=== PATIENT | female | born 1995 | race Caucasian/White ===

== ENCOUNTER 2018-12-04 01:00 | Emergency (ER) | payer OTHER ==
[2018-12-04] MEDS ORDERED: CIPROFLOXACIN HCL 500 MG TABLET PO ONE (01:21)
--- NOTE | 2018-12-04 01:24 | ER Document Report ---
ED General - General Stated Complaint: POST EXPOSURE Time Seen by Provider: 12/04/18 01:21 Notes: Patient is a pleasant 23-year-old female who presents with complaint of possible exposure to meningitis. Her was just brought to the ER unfortunately the cardiac arrest after having fevers and altered mental status and severe headache. Concern is that he has meningitis. Patient herself has not had any fevers or symptoms. She otherwise is doing well. She does not think there is any chance she could be . She has no other concerns or complaints at this time. No headache. No neck stiffness. She denies her and having any kids at home that may have been exposed to him. Past Medical History - Social History Smoking Status: Never Smoker Frequency of alcohol use: None Drug Abuse: None Family History: Reviewed & Not Pertinent Review of Systems - Review of Systems Notes: My Normal Review Basic REVIEW OF SYSTEMS: CONSTITUTIONAL : Denies fever, chills, or sweats. Denies recent illness. SKIN: Denies rash or skin lesions. NEUROLOGICAL: Denies altered mental status or loss of consciousness. Denies headache. Denies weakness or paralysis or loss of use of either side. Denies problems with gait or speech. Denies sensory or motor loss. ALL OTHER SYSTEMS REVIEWED AND NEGATIVE. Physical Exam - Notes Notes: General Appearance: Well nourished, alert, cooperative, no acute distress, no obvious discomfort. Appearing. Vitals: reviewed, See vital signs table. Eyes: PERRL, EOMI, Conjuctiva clear Lungs: No wheezing, No rales, No rhonci, No accessory muscle use, good air exchange bilaterally. Heart: Normal rate, Regular rythm, No murmur, no rub Neuro: speech clear, oriented x 3, normal affect, responds appropriately to questions. Symmetric facial movement. Patient moving all extremities without difficulty. Patient standing walking with normal ambulation. Course - Re-evaluation Re-evalutation: 12/04/18 03:09 Patient has no symptoms concerning for meningitis however there is concerned that she potentially has been exposed to someone with meningitis. Therefore gave her single dose of Cipro 500 mg. I informed her that she still needs to have a low threshold to return to ER if she has fevers, severe headache, neck pain or stiffness, or if she feels unwell. Patient agrees with plan and will be discharged home. Dictation of this chart was performed using voice recognition software; therefore, there may be some unintended grammatical errors. Discharge - Discharge Clinical Impression: meningitis exposure prophylaxis Condition: Good Disposition: HOME, SELF-CARE Additional Instructions: You have been given a dose of antibiotic called ciprofloxacin. This is a one- time dose that helps prophylax against meningitis. We still want you to have a very low threshold to return to the ER if you start having severe headaches, vomiting, confusion, or neck pain, or fevers.
== END 2018-12-04 01:49 | disposition home or self-care (01) ==
LOC: ER 01:00
DX: Z20.828 Contact with and (suspected) exposure to other viral communicable diseases (principal)
CPT/HCPCS: 99282